=== PATIENT | female | born 1980 | race Caucasian/White ===

== ENCOUNTER 2017-08-01 14:36 | Observation (INO) | payer BC, OTHER ==
[~2017-08-01] VITALS: Ht 165.1 cm; Wt 62.9 kg
[2017-08-01] MEDS ORDERED: ONDANSETRON ODT 4 MG PO ONE (15:00)
[2017-08-01 15:22] LABS: BASOPHILS # (AUTO) 0.02 x10^3/uL (0-0.1); BASOPHILS % (AUTO) 0 % (0-1); EOSINOPHILS # (AUTO) 0.04 x10^3/uL (0-0.4); EOSINOPHILS % (AUTO) 0 % (1-7); LYMPHOCYTES # (AUTO) 1.23 x10^3/uL (1-3.4); LYMPHOCYTES % (AUTO) 11 % (22-44); MD NO; MEAN CORPUSCULAR HEMOGLOBIN 30.1 pg (27.0-34.8); MEAN CORPUSCULAR HGB CONC 33.6 g/dL (32.4-35.8); MEAN CORPUSCULAR VOLUME 89.6 fL (80-100); MEAN PLATELET VOLUME 10.2 fL (7.4-10.4); MONOCYTES # (AUTO) 1.26 x10^3/uL (0.2-0.8); MONOCYTES % (AUTO) 11 % (2-9); NEUTROPHILS # (AUTO) 8.51 x10^3/uL (1.8-6.8); NEUTROPHILS % (AUTO) 77 % (42-75); PLATELET COUNT 254 x10^3/uL (130-400); RED BLOOD COUNT 4.12 x10^6/uL (3.82-5.3); RED CELL DISTRIBUTION WIDTH 12.9 % (9.6-15.2)
[2017-08-01 15:25] LABS: MICROSCOPIC INDICATED
[2017-08-01 15:26] LABS: CULTURE INDICATED? YES
[2017-08-01] MEDS ORDERED: ONDANSETRON ODT 4 MG ONE (15:26)
[2017-08-01 15:31] LABS: ALANINE AMINOTRANSFERASE 37 U/L (12-78); ALBUMIN 3.1 g/dL (3.4-5.0); ANION GAP 10 mmol/L (5-15); CALCIUM 8.9 mg/dL (8.5-10.1); CHLORIDE 99 mmol/L (98-107); CREATININE 1.05 mg/dL (0.55-1.02)
[2017-08-01 15:35] LABS: ALKALINE PHOSPHATASE 95 U/L (45-117); BILIRUBIN,TOTAL 0.3 mg/dL (0.2-1.0); TOTAL PROTEIN 7.7 g/dL (6.4-8.2)
[2017-08-01 17:36] LABS: CULTURE INDICATED? YES; MICROSCOPIC INDICATED
[2017-08-01] MEDS ORDERED: CEFTRIAXONE PMX 1GM/50ML 50 ML IV ONE (18:00)
[2017-08-01] MEDS ORDERED: D5%-LACTATED RINGERS 1,000 ML IV SCH (18:15)
[2017-08-01] MEDS ORDERED: CEFTRIAXONE PMX 1GM/50ML 50 ML ONE (18:18)
[2017-08-01] MEDS ORDERED: TEMAZEPAM 30 MG CAPSULE PO PRN (18:30)
[2017-08-01] MEDS ORDERED: KETOROLAC 30 MG/1 ML IVPush PRN (18:30)
[2017-08-01] MEDS ORDERED: HYDROcodone/APAP 5/325 TABLET PO PRN (18:30)
[2017-08-01] MEDS ORDERED: MIDAZOLAM 1 MG/ML, 2ML ONE (18:45)
[2017-08-01] MEDS ORDERED: FENTANYL PF 100 MCG/2ML ONE (18:45)
[2017-08-01] MEDS ORDERED: LIDOCAINE GEL 2%, 5ML ONE (18:45)
[2017-08-01] MEDS ORDERED: ONDANSETRON 2MG/ML, 2ML ONE ×2 (18:49→19:18)
[2017-08-01] MEDS ORDERED: METOCLOPRAMIDE 5 MG/ML, 2ML ONE (18:49)
[2017-08-01] MEDS ORDERED: SUCCINYLCHOLINE 20 MG/ML, 10ML ONE (18:49)
[2017-08-01] MEDS ORDERED: HYDROmorphone 1 MG/ML, 1ML IV PRN (19:00)
[2017-08-01] MEDS ORDERED: METOCLOPRAMIDE 5 MG/ML, 2ML IV PRN (19:00)
[2017-08-01] MEDS ORDERED: PROMETHAZINE 25 MG/ML, 1ML IV PRN (19:00)
[2017-08-01] MEDS ORDERED: SCOPOLAMINE PATCH, 1.5MG PATCH.TD72 TD PRN (19:00)
[2017-08-01] MEDS ORDERED: ONDANSETRON ODT 8 MG PO PRN (19:00)
[2017-08-01] MEDS ORDERED: ACETAMINOPHEN 325 MG TABLET PO PRN (19:00)
[2017-08-01] MEDS ORDERED: hydrALAzine 20 MG/ML, 1ML IV PRN (19:00)
[2017-08-01] MEDS ORDERED: MEPERIDINE/PF 25MG/0.5ML IVPush PRN (19:00)
[2017-08-01] MEDS ORDERED: MIDAZOLAM 1 MG/ML, 2ML IV PRN (19:00)
[2017-08-01] MEDS ORDERED: MORPHINE SULFATE 4 MG/ML, 1ML IVPush PRN (19:00)
[2017-08-01] MEDS ORDERED: LABETALOL 5MG/ML, 20ML IV PRN (19:00)
[2017-08-01] MEDS ORDERED: FENTANYL PF 100 MCG/2ML IV PRN (19:00)
[2017-08-01] MEDS ORDERED: OXYcodone 5 MG/5 ML ORAL.SOL UDC PO PRN (19:00)
[2017-08-01] MEDS ORDERED: EPHEDRINE 50 MG/ML, 1ML IM PRN (19:00)
[2017-08-01] MEDS ORDERED: DIAZEPAM 5 MG/ML, 2ML IVPush PRN (19:00)
[2017-08-01] MEDS ORDERED: OMNIPAQUE 350 MG/ML, 50 ML BOTTLE IV ONE (19:05)
[2017-08-01] MEDS ORDERED: DEXAMETHASONE 4 MG/ML, 1ML ONE (19:18)
[2017-08-01] MEDS ORDERED: PROPOFOL 10 MG/ML, 20ML ONE (19:18)
[2017-08-01] MEDS ORDERED: CEFAZOLIN 1,000 MG ONE (19:18)
[2017-08-01] MEDS ORDERED: TAMS-11 PO (20:48)
[2017-08-01] MEDS ORDERED: CIPR500T87 PO (20:48)
[2017-08-01] MEDS ORDERED: CEFTRIAXONE 1,000 MG in SODIUM CHLORIDE 0.9% 50 ML IVPB SCH (21:00)
[2017-08-01 23:15] LABS: CLOSTRIDIUM DIFFICILE ANTIGEN NEGATIVE; CLOSTRIDIUM DIFFICILE TOXIN NEGATIVE (Negative)
[2017-08-02 00:31] VITALS: BP 100/62
[2017-08-02 03:03] VITALS: BP 99/66
[2017-08-02 07:20] VITALS: BP 110/73
[2017-08-02] MEDS ORDERED: CEFTRIAXONE 1,000 MG IV SCH (09:00)
[2017-08-02] MEDS ORDERED: CEFTRIAXONE 1,000 MG in SODIUM CHLORIDE 0.9% 50 ML IVPB SCH (09:00)
[2017-08-02] MEDS ORDERED: CEFTRIAXONE PMX 1GM/50ML 50 ML IV SCH (09:00)
[2017-08-02] MEDS ORDERED: PHEN100T90 PO (13:03)
[2017-08-02] MEDS ORDERED: CIPR500T87 PO (13:03)
[2017-08-02] MEDS ORDERED: TAMS-11 PO (13:03)
[2017-08-02] MEDS ORDERED: HYDR-3240 PO (13:31)
== END 2017-08-02 14:20 | disposition home or self-care (01) ==
LOC: ED 16:52 → EDIP 17:59 → INTOOBSV 17:59 → 4NOR 20:33 → DCLOUNGE 08-02 14:00
PROVIDERS: ADMIT Urology; ATTEND Urology
DX: N13.2 Hydronephrosis with renal and ureteral calculous obstruction (principal); N39.0 Urinary tract infection, site not specified; N23 Unspecified renal colic
CPT/HCPCS: 36415; 52005; 74176; 74420; 80053; 81001; 84703; 85025; 87086; 87324; 93005; 96365; 96375; 99285; C1758; C2617; G0378; J0330; J0690; J0696; J1100; J2250; J2405; J2704; J2765; J3010; Q9967